=== PATIENT | female | born 1965 | race Two or more races ===

== ENCOUNTER 2018-11-03 23:53 | Emergency (ER) | payer OTHER ==
[~2018-11-03] VITALS: Ht 175.3 cm; Wt 87.6 kg
[2018-11-03] MEDS ORDERED: IV NS 0.9% 50 ML BAG IV ONE (23:55)
[2018-11-03] MEDS ORDERED: IV SET PRIMARY PUMP SET 1 EA INFUS.SET MC ONE (23:55)
--- NOTE | 2018-11-03 23:55 | NUR ---
PT BIB RA 40 WITH A C/O LT SIDED WEAKNESS/NUMBNESS SINCE 2308. 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 BLOOD SUGAR IN THE FIELD WAS READING HIGH. PT REC'D 4MG ZOFRAN ODT IN THE FIELD. DR. RODRIGUEZ IS AT THE BEDSIDE EVALUATING THE PT.
[2018-11-03] MEDS ORDERED: ALTEPLASE 100 MG/VIAL VIAL IV ONE (23:58)
[2018-11-04] MEDS ORDERED: IV NS 0.9% 1,000 ML BAG IV ONE
--- NOTE | 2018-11-04 | NUR ---
TELESTROKE CALLED AND NOTIFIED OF CODE STROKE
[2018-11-04] MEDS ORDERED: CT SWABBABLE VALVE TRANS SET 1 EA INFUS.SET MC ONE (00:04)
[2018-11-04] MEDS ORDERED: IOHEXOL-350 100 ML VIAL IV ONE (00:04)
[2018-11-04 00:19] LABS: BASOPHILS % (AUTO) 0.4 % (0.0-2.0); EOSINOPHILS % (AUTO) 2.2 % (0.0-6.0); HEMATOCRIT 41 % (33-45); HEMOGLOBIN 13.9 g/dL (11.5-14.8); LYMPHOCYTES # (AUTO) 2.3 /CMM (0.8-4.8); LYMPHOCYTES % (AUTO) 31.3 % (20.0-44.0); MEAN CORPUSCULAR HGB CONC 34 g/dl (31.0-36.0); MEAN CORPUSCULAR VOLUME 91 fL (82-100); MONOCYTES # (AUTO) 0.6 /CMM (0.1-1.30); MONOCYTES % (AUTO) 7.8 % (2.0-12.0); NEUTROPHILS # (AUTO) 4.3 /CMM (1.8-8.9); NEUTROPHILS % (AUTO) 58.3 % (43.0-81.0); PLATELET COUNT (AUTO) 342 /CMM (150-450); RED BLOOD CELL COUNT(AUTO) 4.57 MIL/uL (4.0-5.2); WHITE BLOOD COUNT (AUTO) 7.4 K/uL (4.3-11.0)
[2018-11-04] MEDS ORDERED: ASPIRIN (00:23)
[2018-11-04] MEDS ORDERED: INSULIN (00:23)
[2018-11-04] MEDS ORDERED: AMLODIPINE (00:23)
[2018-11-04] MEDS ORDERED: PLAVIX (00:23)
[2018-11-04] MEDS ORDERED: METOPROLOL (00:23)
[2018-11-04 00:34] LABS: CALCIUM, SERUM 8.5 mg/dL (8.5-10.1); CARBON DIOXIDE 24 mmol/L (21-32); CHLORIDE 97 mmol/L (98-107); CREATININE 0.9 mg/dL (0.6-1.3); POTASSIUM 3.8 mmol/L (3.5-5.1); SODIUM SERUM 131 mmol/L (136-145); UREA NITROGEN, BLOOD 7 mg/dL (7-18)
[2018-11-04 00:36] LABS: GLUCOSE 506 mg/dL (74-106)
[2018-11-04 00:37] LABS: CHOLESTEROL 187 mg/dL (<200); HDL CHOLESTEROL 91 mg/dL (40-60); LDL 85 mg/dL (0-99); TRIGLYCERIDES 115 mg/dL (30-150)
[2018-11-04 00:43] LABS: ABG BASE EXCESS -1.8 mmol/L; ABG PCO2 40.6 mmHg (35.0-45.0); ABG PH 7.375 (7.350-7.450); ABG PO2 40.4 mmHg (75.0-100.0); COHb 0.7 % (0.5-1.5); MetHb 0.6 % (0.0-1.5); VENT MODE, BG VENOUS
[2018-11-04] MEDS ORDERED: INSULIN ASPART/LISPRO 100 UNIT/ML CARTRIDGE SQ STA (00:48)
--- NOTE | 2018-11-04 00:49 | NUR ---
TPA STARTED. PT STABLE AND TOLERATING WELL. WILL CONTINUE TO MONITOR.
[2018-11-04] MEDS ORDERED: ALTEPLASE 100 MG/VIAL VIAL IV ONE (01:00)
[2018-11-04] MEDS ORDERED: INSULIN REGULAR, HUMAN 100 UNIT/ML 10 ML VIAL ONE (01:00)
--- NOTE | 2018-11-04 01:05 | NUR ---
TPA STARTED AND INFUSING. PT AOX3. RESPONSIVE TO VERBAL/TOUCH. NO SOB NOTED AT THIS TIME.
--- NOTE | 2018-11-04 01:09 | NUR ---
Patient is resting comfortably in bed with eyes closed. Easily aroused. VSS
--- NOTE | 2018-11-04 01:27 | NUR ---
[facility] CALLED AND WILL BE COMING TO TRANSFER THE PT.
[2018-11-04 01:34] VITALS: BP 108/71
[2018-11-04] MEDS ORDERED: ONDANSETRON HCL/PF 4 MG/2 ML VIAL ONE (01:45)
[2018-11-04] MEDS ORDERED: MORPHINE SULFATE INJ 4 MG/ML DISP.SYRIN ONE (01:46)
--- NOTE | 2018-11-04 01:46 | NUR ---
PT C/O SEVERE HEADACHE. DR. RODRIGUEZ NOTIFIED. CT CALLED. PT LEFT FOR STAT HEAD CT.
--- NOTE | 2018-11-04 01:47 | NUR ---
SUMMER CALLED FROM TELE STROKE RE: TPA BOLUS TIME 0049.
--- NOTE | 2018-11-04 01:55 | NUR ---
REPORT GIVEN TO LYLE, [facility]
[2018-11-04] MEDS ORDERED: MORPHINE SULFATE INJ 2 MG/ML DISP.SYRIN IV ONE (02:00)
[2018-11-04] MEDS ORDERED: ONDANSETRON HCL/PF 4 MG/2 ML VIAL IV ONE (02:00)
--- NOTE | 2018-11-04 02:23 | NUR ---
REPORT GIVEN TO MALISSA NIX.
== END 2018-11-04 02:26 | disposition short-term general hospital (02) ==
LOC: ER 23:57
DX: I63.9 Cerebral infarction, unspecified (principal); E11.65 Type 2 diabetes mellitus with hyperglycemia; I10 Essential (primary) hypertension; E78.5 Hyperlipidemia, unspecified; Z88.8 Allergy status to other drugs, medicaments and biological substances; Z95.818 Presence of other cardiac implants and grafts
CPT/HCPCS: 36415; 36600; 70450-TC; 70496-TC; 70498-TC; 71045-TC; 80048-TC; 80061-TC; 82962-TC; 84484-TC; 85025-TC; 85730-TC; 86850-TC; A4216; A4606; J1815; J2270; J2405; J2997; Q9967; Z7610

== ENCOUNTER 2019-02-18 15:09 | Emergency (ER) | payer OTHER ==
[~2019-02-18] VITALS: Ht 165.1 cm; Wt 84.8 kg
[~2019-02-18 15:09] MED LIST: AMLODIPINE; ASPIRIN; INSULIN; METOPROLOL; PLAVIX
[2019-02-18] MEDS ORDERED: GADOVERSETAMIDE 5 MMOL/10 ML VIAL IJ ONE (15:10)
--- NOTE | 2019-02-18 15:20 | NUR ---
BIB BY EMS. PT IS AAOX4. VERBALLY RESPONISIVE. NO ACUTE DIATRESS NOTED. COMPLAINS OF HEADACHE ON HER LEFT HEAD EXTEDING TO THR RIGHT EYE.
--- NOTE | 2019-02-18 15:30 | NUR ---
MD AT BEDSIDE. AWAITING MD ORDERS
--- NOTE | 2019-02-18 15:30 | NUR ---
IV ACCESS OBTAINED ON RIGHT AC 18G. LABS DRAWN. AT BEDSIDE. AWAITING ORDERS
[2019-02-18 16:16] LABS: BASOPHILS % (AUTO) 0.4 % (0.0-2.0); EOSINOPHILS % (AUTO) 1.3 % (0.0-6.0); HEMATOCRIT 46 % (33-45); HEMOGLOBIN 15.8 g/dL (11.5-14.8); LYMPHOCYTES % (AUTO) 19.8 % (20.0-44.0); MEAN CORPUSCULAR HGB CONC 34 g/dl (31.0-36.0); MEAN CORPUSCULAR VOLUME 90 fL (82-100); MONOCYTES # (AUTO) 0.6 /CMM (0.1-1.30); MONOCYTES % (AUTO) 5.7 % (2.0-12.0); NEUTROPHILS # (AUTO) 7.3 /CMM (1.8-8.9); NEUTROPHILS % (AUTO) 72.8 % (43.0-81.0); PLATELET COUNT (AUTO) 340 /CMM (150-450); RED BLOOD CELL COUNT(AUTO) 5.13 MIL/uL (4.0-5.2); WHITE BLOOD COUNT (AUTO) 10.1 K/uL (4.3-11.0)
[2019-02-18] MEDS ORDERED: METOCLOPRAMIDE HCL 10 MG/2 ML VIAL ONE (16:16)
[2019-02-18] MEDS ORDERED: ONDANSETRON HCL/PF 4 MG/2 ML VIAL ONE (16:17)
--- NOTE | 2019-02-18 16:23 | NUR ---
PT WHEELED TO CT
[2019-02-18] MEDS ORDERED: IV NS 0.9% 1,000 ML BAG IV ONE ×2 (16:30→17:00)
[2019-02-18] MEDS ORDERED: METOCLOPRAMIDE HCL 10 MG/2 ML VIAL IV ONE (16:30)
[2019-02-18] MEDS ORDERED: ONDANSETRON HCL/PF 4 MG/2 ML VIAL IVP ONE ×2 (16:30→18:30)
--- NOTE | 2019-02-18 16:33 | NUR ---
RETURNED TO BED 12
[2019-02-18 16:36] LABS: ALANINE AMINOTRANSFERASE 24 U/L (12-78); ALBUMIN 3.6 g/dL (3.4-5.0); ALKALINE PHOSPHATASE 90 U/L (46-116); ASPARTATE AMINOTRANSFERASE 15 U/L (15-37); BILIRUBIN,DIRECT 0.1 mg/dL (0.0-0.2); BILIRUBIN,TOTAL 0.6 mg/dL (0.2-1.0); CALCIUM, SERUM 9.3 mg/dL (8.5-10.1); CARBON DIOXIDE 21 mmol/L (21-32); CHLORIDE 94 mmol/L (98-107); CREATININE 1.1 mg/dL (0.6-1.3); POTASSIUM 4.4 mmol/L (3.5-5.1); SODIUM SERUM 128 mmol/L (136-145); TOTAL PROTEIN, SERUM 7.5 g/dL (6.4-8.2); UREA NITROGEN, BLOOD 13 mg/dL (7-18)
[2019-02-18 16:38] LABS: GLUCOSE 551 mg/dL (74-106)
[2019-02-18] MEDS ORDERED: INSULIN REGULAR, HUMAN 100 UNIT/ML 10 ML VIAL IV ONE (17:00)
[2019-02-18] MEDS ORDERED: INSULIN REGULAR, HUMAN 100 UNIT/ML 10 ML VIAL ONE (17:11)
[2019-02-18] MEDS ORDERED: MORPHINE SULFATE INJ 4 MG/ML DISP.SYRIN ONE (18:16)
[2019-02-18] MEDS ORDERED: MORPHINE SULFATE INJ 2 MG/ML DISP.SYRIN IV ONE (18:30)
--- NOTE | 2019-02-18 19:30 | NUR ---
REPORT GIVEN TO [facility] MARTIN FOR [facility]
--- NOTE | 2019-02-18 19:31 | NUR ---
REC'D REPORT FROM [facility] BALTAZAR FOR [facility]. PT TAKEN TO MRI VIA WC.
--- NOTE | 2019-02-18 20:28 | NUR ---
PT BACK FROM MRI. CESAR WELL. HOOKED TO MONITOR, WILL CONT TO OBSERVE
[2019-02-18] MEDS ORDERED: HYDROCODONE/APAP 10/325MG 1 EA TABLET ONE (20:38)
--- NOTE | 2019-02-18 20:43 | NUR ---
PO PAIN MEDICATION GIVEN PER ORDER
--- NOTE | 2019-02-18 20:52 | NUR ---
GAVE PT SANDWICH AND JUICE
[2019-02-18] MEDS ORDERED: HYDROCODONE/APAP 10/325MG 1 EA TABLET PO ONE (21:00)
--- NOTE | 2019-02-18 21:48 | NUR ---
IV removed. Catheter intact and site benign. Pressure and 4x4 applied to site. No bleeding noted. Patient discharged to home in stable condition. Written and verbal after care instructions given. Patient verbalizes understanding of instruction.
[2019-02-18 22:09] VITALS: BP 124/86
== END 2019-02-18 21:45 | disposition home or self-care (01) ==
LOC: ER 15:09
DX: R51 Headache (principal); E11.65 Type 2 diabetes mellitus with hyperglycemia; I10 Essential (primary) hypertension; Z98.890 Other specified postprocedural states; Z95.818 Presence of other cardiac implants and grafts; Z88.8 Allergy status to other drugs, medicaments and biological substances
CPT/HCPCS: 36415; 70450; 70553; 71045; 80048; 80076; 82962 ×2; 84484; 85025; 85730; 93005; 96361; 96374; 96375; 99284; A9579; J1815; J2270; J2405; J2765; J7030 ×2

== ENCOUNTER 2019-04-19 18:41 | Emergency (ER) | payer OTHER ==
[~2019-04-19] VITALS: Ht 165.1 cm; Wt 84.8 kg
--- NOTE | 2019-04-19 18:50 | NUR ---
[id number], FROM HOME, C/O WEAKNESS x 1 WEEK, BS 379, +NAUSEA, HEADACHE, PATIENT A/OX4, BREATHING EVEN AND UNLABORED, NO SOB NOTED, PLACED ON THE MONITOR, SEEN BY MD FOR EVAL.
[2019-04-19 19:33] LABS: BASOPHILS # (AUTO) 0.1 /CMM (0.0-0.2); BASOPHILS % (AUTO) 1.4 % (0.0-2.0); EOSINOPHILS % (AUTO) 3.2 % (0.0-6.0); HEMATOCRIT 40 % (33-45); HEMOGLOBIN 13.6 g/dL (11.5-14.8); LYMPHOCYTES # (AUTO) 2.7 /CMM (0.8-4.8); LYMPHOCYTES % (AUTO) 36.7 % (20.0-44.0); MEAN CORPUSCULAR HGB CONC 34 g/dl (31.0-36.0); MEAN CORPUSCULAR VOLUME 90 fL (82-100); MONOCYTES # (AUTO) 0.6 /CMM (0.1-1.30); MONOCYTES % (AUTO) 8.3 % (2.0-12.0); NEUTROPHILS # (AUTO) 3.7 /CMM (1.8-8.9); NEUTROPHILS % (AUTO) 50.4 % (43.0-81.0); PLATELET COUNT (AUTO) 288 /CMM (150-450); RED BLOOD CELL COUNT(AUTO) 4.39 MIL/uL (4.0-5.2); WHITE BLOOD COUNT (AUTO) 7.3 K/uL (4.3-11.0)
--- NOTE | 2019-04-19 19:44 | NUR ---
ENDORSED TO DELANEY NIX FOR [facility].
[2019-04-19] MEDS ORDERED: diphenhydrAMINE HCL 50 MG/ML VIAL ONE (19:46)
[2019-04-19] MEDS ORDERED: ONDANSETRON HCL/PF 4 MG/2 ML VIAL ONE (19:46)
[2019-04-19] MEDS ORDERED: MORPHINE SULFATE INJ 4 MG/ML DISP.SYRIN ONE (19:47)
[2019-04-19 19:48] LABS: ALANINE AMINOTRANSFERASE 26 U/L (12-78); ALBUMIN 3.2 g/dL (3.4-5.0); ALKALINE PHOSPHATASE 65 U/L (46-116); ASPARTATE AMINOTRANSFERASE 20 U/L (15-37); BILIRUBIN,DIRECT 0.1 mg/dL (0.0-0.2); BILIRUBIN,TOTAL 0.7 mg/dL (0.2-1.0); CARBON DIOXIDE 23 mmol/L (21-32); CHLORIDE 100 mmol/L (98-107); CREATININE 0.9 mg/dL (0.6-1.3); GLUCOSE 345 mg/dL (74-106); SODIUM SERUM 133 mmol/L (136-145); TOTAL PROTEIN, SERUM 6.6 g/dL (6.4-8.2); UREA NITROGEN, BLOOD 6 mg/dL (7-18)
[2019-04-19] MEDS ORDERED: IV NS 0.9% 250 ML IV ONE (19:54)
[2019-04-19] MEDS ORDERED: CT SWABBABLE VALVE TRANS SET 1 EA INFUS.SET MC ONE (19:54)
[2019-04-19] MEDS ORDERED: IOHEXOL-350 100 ML VIAL IV ONE (19:54)
[2019-04-19] MEDS ORDERED: MORPHINE SULFATE INJ 2 MG/ML DISP.SYRIN IV ONE (20:00)
[2019-04-19] MEDS ORDERED: ONDANSETRON HCL/PF 4 MG/2 ML VIAL IVP ONE (20:00)
[2019-04-19] MEDS ORDERED: diphenhydrAMINE HCL 50 MG/ML VIAL IV ONE (20:00)
--- NOTE | 2019-04-19 20:11 | NUR ---
PT WHEELED TO CT ON [facility]
[2019-04-19 20:32] LABS: CHOLESTEROL 253 mg/dL (<200); HDL CHOLESTEROL 91 mg/dL (40-60); LDL 130 mg/dL (0-99); TRIGLYCERIDES 138 mg/dL (30-150)
[2019-04-19] MEDS ORDERED: ASPIRIN 325 MG TABLET ONE (21:35)
[2019-04-19] MEDS ORDERED: ASPIRIN 325 MG TABLET PO ONE (22:00)
--- NOTE | 2019-04-19 22:53 | NUR ---
PT ACCEPT TO [facility] ROOM 7217. # FOR REPORT [phone]. [facility] ETA [phone]
--- NOTE | 2019-04-19 23:08 | NUR ---
REPORT GIVEN TO BILLY MA RN FOR [facility]. PT GOING TO [facility].
[2019-04-20] MEDS ORDERED: diphenhydrAMINE HCL 50 MG/ML VIAL ONE (00:39)
--- NOTE | 2019-04-20 00:42 | NUR ---
PT COMPLAINED OF GEN BODY ITCHING. MD MADE AWARE, RECEIVED VERBAL ORDER TO GIVE BENADRYL 25MG. NOTED AND CARRIED OUT
[2019-04-20 01:58] VITALS: BP 105/67
--- NOTE | 2019-04-20 01:59 | NUR ---
PT IN BED SLEEPING. EASILY ARROUSABLE. NAD NOTED
--- NOTE | 2019-04-20 02:27 | NUR ---
MARISOL AT BEDSIDE FOR PT P/U TO TRANSFER TO [facility]. REPORT GIVEN TO [facility] STA[facility] #[id number]. PT IN STABLE CONDITION FOR TRANSPORT. NAD, BREATHING EVEN AND UNLABORED.
[2019-04-20] MEDS ORDERED: diphenhydrAMINE HCL 50 MG/ML VIAL IV ONE (02:30)
== END 2019-04-20 02:44 | disposition short-term general hospital (02) ==
LOC: ER 18:45
DX: G45.9 Transient cerebral ischemic attack, unspecified (principal); E11.9 Type 2 diabetes mellitus without complications; I10 Essential (primary) hypertension; Z95.818 Presence of other cardiac implants and grafts; Z98.890 Other specified postprocedural states; Z88.8 Allergy status to other drugs, medicaments and biological substances
CPT/HCPCS: 36415; 70450; 70496; 70498; 71045; 80048; 80061; 80076; 82962; 84484; 85025; 85730; 93005; 96374; 96375; 96376; 99285; J1200 ×2; J2270; J2405; J7050; Q9967